=== PATIENT | female | born 1965 | race Caucasian/White ===

== ENCOUNTER 2018-06-22 16:45 | Emergency (ER) | payer MEDICARE, BC ==
[2018-06-22] MEDS ORDERED: Adacel (T-DAP) 0.5 ML VIAL ONE (16:50)
[2018-06-22] MEDS ORDERED: Lidocaine 2% w/Epinephrine 1:200K 20 ML VIAL ONE (17:16)
[2018-06-22] MEDS ORDERED: Bacitracin Zinc 1 Packet ONE (17:46)
== END 2018-06-22 17:50 | disposition home or self-care (01) ==
LOC: MADERS 16:45
DX: S81.811A Laceration without foreign body, right lower leg, initial encounter (principal); J45.909 Unspecified asthma, uncomplicated; E78.5 Hyperlipidemia, unspecified; F32.9 Major depressive disorder, single episode, unspecified; F17.290 Nicotine dependence, other tobacco product, uncomplicated; Z79.899 Other long term (current) drug therapy; W26.8XXA Contact with other sharp object(s), not elsewhere classified, initial encounter
CPT/HCPCS: 12002; 90471; 90715

== ENCOUNTER 2018-10-10 11:45 | Emergency (ER) | payer MEDICARE, BC ==
[2018-10-10] MEDS ORDERED: Ibuprofen 600 MG TAB ONE (12:16)
--- NOTE | 2018-10-10 13:43 | RAD ---
RIGHT ANKLE THREE VIEWS: History: Fall, right ankle injury. FINDINGS: Ankle mortise and talar dome are intact. Mild soft tissue swelling over the lateral malleolus. 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 No acute fracture or dislocation are apparent. Degenerative changes of the hind foot and pes p lanus are evident on the lateral view. IMPRESSION: Soft tissue swelling. No acute osseous abnormalities are demonstrated. POS: [facility]
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
== END 2018-10-10 12:42 | disposition home or self-care (01) ==
LOC: MADERS 11:45
DX: S93.401A Sprain of unspecified ligament of right ankle, initial encounter (principal); S60.221A Contusion of right hand, initial encounter; J45.909 Unspecified asthma, uncomplicated; K21.9 Gastro-esophageal reflux disease without esophagitis; F41.9 Anxiety disorder, unspecified; F32.9 Major depressive disorder, single episode, unspecified; F17.210 Nicotine dependence, cigarettes, uncomplicated; Z79.899 Other long term (current) drug therapy; W17.89XA Other fall from one level to another, initial encounter